=== PATIENT | female | born 1965 ===

== ENCOUNTER 2018-02-10 10:50 | Outpatient (CLI) | payer OTHER ==
[~2018-02-10] VITALS: Ht 152.4 cm; Wt 49.9 kg
== END 2018-02-10 11:10 | disposition home or self-care (01) ==
LOC: OFIC 805 10:50
DX: H61.21 Impacted cerumen, right ear (principal); H92.01 Otalgia, right ear; H60.311 Diffuse otitis externa, right ear

== ENCOUNTER 2018-02-15 11:09 | Outpatient (CLI) | payer OTHER ==
[~2018-02-15] VITALS: Ht 152.4 cm; Wt 49.9 kg
== END 2018-02-15 11:20 | disposition home or self-care (01) ==
LOC: OFIC 805 11:09
DX: H61.21 Impacted cerumen, right ear (principal); H92.01 Otalgia, right ear; H60.8X1 Other otitis externa, right ear

== ENCOUNTER 2018-02-17 12:14 | Outpatient (CLI) | payer OTHER ==
[~2018-02-17] VITALS: Ht 152.4 cm; Wt 49.9 kg
== END 2018-02-17 12:30 | disposition home or self-care (01) ==
LOC: OFIC 805 12:14
DX: H92.01 Otalgia, right ear (principal); H60.8X1 Other otitis externa, right ear

== ENCOUNTER 2018-02-24 10:46 | Outpatient (CLI) | payer OTHER ==
[~2018-02-24] VITALS: Ht 152.4 cm; Wt 49.9 kg
== END 2018-02-24 11:05 | disposition home or self-care (01) ==
LOC: OFIC 805 10:46
DX: H60.8X1 Other otitis externa, right ear (principal); H92.01 Otalgia, right ear

== ENCOUNTER 2018-07-19 15:36 | Outpatient (CLI) | payer OTHER | END 2018-07-19 18:00 | disposition home or self-care (01) | LOC: LAB 15:36 | DX: Z11.3 Encounter for screening for infections with a predominantly sexual mode of transmission (principal) ==